=== PATIENT | male | born 1955 | race Caucasian/White ===

== ENCOUNTER 2019-11-23 07:49 | Outpatient (CLI) | payer OTHER, SELFPAY ==
[2019-11-23 08:31] LABS: Cholesterol 165 mg/dL (0-200); HDL Direct 40 mg/dL; Triglycerides 88 mg/dL (<150)
[2019-11-23 08:42] LABS: LDL Cholesterol Direct 105 mg/dL
== END 2019-11-23 07:50 | disposition home or self-care (01) ==
PROVIDERS: PCP Internal Medicine; Visit Provider Internal Medicine Cardiovascular Disease
DX: E78.5 Hyperlipidemia, unspecified (principal)
CPT/HCPCS: 36415; 80061

== ENCOUNTER 2020-04-12 10:16 | Outpatient (CLI) | payer MEDICARE, OTHER, SELFPAY ==
[2020-04-12 11:33] LABS: Prostate Specific Antigen 4.7 ng/mL (< OR = 4.0)
== END 2020-04-12 10:17 | disposition home or self-care (01) ==
LOC: ANHLAB 10:18
PROVIDERS: PCP Internal Medicine; Visit Provider Urology
DX: R97.20 Elevated prostate specific antigen [PSA] (principal)
CPT/HCPCS: 36415; 84153

== ENCOUNTER 2020-05-03 09:39 | Outpatient (CLI) | payer MEDICARE, OTHER, SELFPAY ==
[2020-05-03 10:24] LABS: Basophils Absolute Auto 0.1 K/mm3 (0.0-0.1); Basophils Percent Auto 0.8 % (0.2-1.2); Eosinophils Absolute Auto 0.2 K/mm3 (0-0.3); Hematocrit 41.6 % (42.0-52.0); Hemoglobin 13.7 g/dL (14.0-18.0); Immature Granulocyte Absolute 0.01 K/mm3 (0.00-0.031); Immature Granulocyte Percent A 0.2 % (0-0.5); Lymphocytes Absolute Auto 1.43 K/mm3 (0.9-3.2); Lymphocytes Percent Auto 22.4 % (18.3-44.2); Mean Corpuscular HGB Conc 32.9 g/dl (32-36); Mean Corpuscular Hemoglobin 30.2 pg (26-34); Mean Corpuscular Volume 91.8 fl (80-100); Mean Platelet Volume 9.7 fl (7.4-10.4); Monocytes Absolute Auto 0.6 K/mm3 (0.1-0.6); Monocytes Percent Auto 9.7 % (2.6-8.5); Neutrophils Absolute Auto 4.1 K/mm3 (1.3-6.7); Neutrophils Percent Auto 63.9 % (45.5-73.1); Platelet Count Result 285 k/mm3 (150-375); Red Blood Count 4.53 M/mm3 (4.6-6.20); Red Cell Distribution Width 13.1 % (11.5-14.5); White Blood Count 6.4 K/mm3 (4.5-10.0)
[2020-05-03 10:38] LABS: Alanine Aminotransferase 37 U/L (4-50); Albumin Level 3.9 g/dL (3.5-5.1); Alkaline Phosphatase 60 U/L (38-126); Anion Gap 6 mmol/L (8-16); Aspartate Amino Transferase 34 U/L (17-59); Bilirubin,Total 0.3 mg/dL (0.2-1.3); Blood Urea Nitrogen 15 mg/dL (9-20); Calcium 8.2 mg/dL (8.4-10.2); Carbon Dioxide 29 mmol/L (22-30); Chloride 104 mmol/L (98-107); Cholesterol 168 mg/dL (0-200); Estimated Glomerular Filt Rate 55; Glucose 90 mg/dL (75-110); HDL Direct 39 mg/dL; Sodium 139 mmol/L (137-145); Triglycerides 128 mg/dL (<150)
[2020-05-03 10:49] LABS: LDL Cholesterol Direct 103 mg/dL
== END 2020-05-03 09:40 | disposition home or self-care (01) ==
LOC: ANHLAB 09:40
PROVIDERS: PCP Internal Medicine; Visit Provider Internal Medicine
DX: G25.0 Essential tremor (principal); E78.5 Hyperlipidemia, unspecified
CPT/HCPCS: 36415; 80053; 80061; 85025

== ENCOUNTER 2020-05-15 07:39 | Outpatient (CLI) | payer MEDICARE, OTHER, SELFPAY ==
--- NOTE | ~2020-05-15 | US_ITS ---
EXAMINATION: US aorta [facility] scrn DATE: 05/15/2020 08:23 INDICATION: Personal history of nicotine dependence, abdominal aortic aneurysm screening TECHNIQUE: Grayscale, color Doppler, and pulsed Doppler images of the aorta and common iliac arteries were obtained. COMPARISON: None. FINDINGS: Maximum vascular dimensions are as follows: Proximal aorta: 2.0 cm Mid aorta: 1.8 cm Distal aorta: 1.9 cm Right common iliac artery: 1.1 cm Left common iliac artery: One three cm There is no evidence of abdominal aortic aneurysm. IMPRESSION: 1. No sonographic evidence of abdominal aortic aneurysm. Reviewed, dictated and finalized at location A.
== END 2020-05-15 07:40 | disposition home or self-care (01) ==
LOC: ANHIMG 07:48
PROVIDERS: PCP Internal Medicine; Visit Provider Internal Medicine
DX: Z87.891 Personal history of nicotine dependence (principal)
CPT/HCPCS: 76706

== ENCOUNTER 2020-10-19 10:19 | Outpatient (CLI) | payer MEDICARE, OTHER, SELFPAY ==
--- NOTE | ~2020-10-19 | XR_ITS ---
XR abdomen/kub 1V DATE: 10/19/2020 10:36 INDICATION: Calcium kidney stone TECHNIQUE: AP projection, 2 views COMPARISON: 05/18/[address] abdomen pelvis FINDINGS: There is an approximately 8 mm calcified calculus overlying the left renal pelvis. This lik abad corresponds to a similar size and shape calculus at the upper pole the left kidney on 05/18/2019 CT abdomen pelvis examination. No other urinary tract calcifications are noted on the prior CT abdomen pelvis examination or records KUB. The psoas shadows are intact. No visceromegaly is evident. The bowel gas pattern is unremarkable, without evidence of obstruction. IMPRESSION: 8 mm calcified calculus at left ureteropelvic junction Reviewed, dictated and finalized at Location A. Reviewed, dictated and finalized at location A. ND WATCH SERGEANT
== END 2020-10-19 10:20 | disposition home or self-care (01) ==
PROVIDERS: PCP Internal Medicine; Visit Provider Urology
DX: N20.0 Calculus of kidney (principal)
CPT/HCPCS: 74018

== ENCOUNTER 2020-11-08 07:33 | Outpatient (CLI) | payer MEDICARE, OTHER, SELFPAY ==
[2020-11-08 08:14] LABS: Basophils Absolute Auto 0.1 K/mm3 (0.0-0.1); Basophils Percent Auto 0.8 % (0.2-1.2); Eosinophils Absolute Auto 0.2 K/mm3 (0-0.3); Eosinophils Percent Auto 2.6 % (0-4.4); Hematocrit 42.8 % (42.0-52.0); Hemoglobin 14.1 g/dL (14.0-18.0); Immature Granulocyte Absolute 0.03 K/mm3 (0.00-0.031); Immature Granulocyte Percent A 0.4 % (0-0.5); Lymphocytes Absolute Auto 1.62 K/mm3 (0.9-3.2); Lymphocytes Percent Auto 21.2 % (18.3-44.2); Mean Corpuscular HGB Conc 32.9 g/dl (32-36); Mean Corpuscular Hemoglobin 29.8 pg (26-34); Mean Corpuscular Volume 90.5 fl (80-100); Mean Platelet Volume 9.1 fl (7.4-10.4); Monocytes Absolute Auto 0.7 K/mm3 (0.1-0.6); Monocytes Percent Auto 8.6 % (2.6-8.5); Neutrophils Absolute Auto 5.1 K/mm3 (1.3-6.7); Neutrophils Percent Auto 66.4 % (45.5-73.1); Platelet Count Result 271 k/mm3 (150-375); Red Blood Count 4.73 M/mm3 (4.6-6.20); Red Cell Distribution Width 12.8 % (11.5-14.5); White Blood Count 7.6 K/mm3 (4.5-10.0)
[2020-11-08 08:28] LABS: Alanine Aminotransferase 43 U/L (4-50); Albumin Level 3.8 g/dL (3.5-5.1); Alkaline Phosphatase 56 U/L (38-126); Anion Gap 4 mmol/L (8-16); Aspartate Amino Transferase 38 U/L (17-59); Bilirubin,Total 0.4 mg/dL (0.2-1.3); Blood Urea Nitrogen 13 mg/dL (9-20); Calcium 8.7 mg/dL (8.4-10.2); Carbon Dioxide 31 mmol/L (22-30); Chloride 104 mmol/L (98-107); Estimated Glomerular Filt Rate 41; Glucose 112 mg/dL (75-110); Potassium 4.5 mmol/L (3.4-5.0); Sodium 139 mmol/L (137-145)
[2020-11-08 09:02] LABS: Hemoglobin A1C 5.5 % (<5.7)
[2020-11-08 09:11] LABS: Microalbumin Urine Random 95.5 mg/L (0-16.7)
[2020-11-08 09:48] LABS: Creatinine Urine 372.5 mg/dL; MALB Creatinine Ratio 25.6 mg/g (0-30)
== END 2020-11-08 07:34 | disposition home or self-care (01) ==
PROVIDERS: PCP Internal Medicine; Visit Provider Internal Medicine
DX: E78.2 Mixed hyperlipidemia (principal); I48.0 Paroxysmal atrial fibrillation; F33.1 Major depressive disorder, recurrent, moderate; E55.9 Vitamin D deficiency, unspecified; E78.5 Hyperlipidemia, unspecified; R73.01 Impaired fasting glucose
CPT/HCPCS: 36415; 80053; 82043; 83036; 85025

== ENCOUNTER → 2020-11-14 00:21 | Outpatient (CLI) | payer MEDICARE, OTHER, SELFPAY ==
[2020-11-14 19:08] LABS: SARS-CoV-2 RNA PCR Negative
== END ==
PROVIDERS: PCP Internal Medicine; Visit Provider Urology
DX: Z01.812 Encounter for preprocedural laboratory examination (principal); Z20.822 Contact with and (suspected) exposure to COVID-19
CPT/HCPCS: C9803; U0003; U0005

== ENCOUNTER 2020-11-14 08:03 | Outpatient (CLI) | payer MEDICARE, OTHER, SELFPAY ==
[2020-11-14 08:26] LABS: INR 1.3; Prothrombin Time 16.7 Seconds (11.1-14.7)
[2020-11-14 08:27] LABS: Partial Thromboplastin Time 34.8 SECONDS (22.3-36.8)
== END 2020-11-14 08:04 | disposition home or self-care (01) ==
PROVIDERS: PCP Internal Medicine; Visit Provider Urology
DX: Z01.812 Encounter for preprocedural laboratory examination (principal); N20.0 Calculus of kidney; Z51.81 Encounter for therapeutic drug level monitoring; Z79.899 Other long term (current) drug therapy
CPT/HCPCS: 36415; 85610; 85730; 87086; C9803; U0003; U0005

== ENCOUNTER 2020-11-17 00:43 | Day surgery (SDC) | payer MEDICARE, OTHER, SELFPAY ==
[2020-11-06 11:18] VITALS: BMI 29.4
--- NOTE | 2020-11-16 13:11 | WPDANESEPPF ---
Anes - Initial Pre Proc Eval Procedure: Operation Date: 11/17/20 07:30 Proposed Procedures p Left Renal Extracorporeal Shock Wave Lithotripsy - Stevenson Villagran MD Date/Time: 11/16/20 13:11 Surgeon: Stevenson Villagran MD Pre Op Diagnosis: left kidney stone Patient Data Age: 65 Gender: M Height: 5 ft 10 in Weight: 92.99 kg Allergies Allergy/AdvReac Type Severity Reaction Status Date / Time No Known Allergies Allergy Verified 11/08/20 07:03 Home Medications Medication Instructions Recorded Confirmed Type flecainide 100 mg tablet See Rx Instructions .ROUTE 10/30/20 11/08/20 Rx .COMPLEX #60 tablet cholecalciferol (vitamin D3) 50 mcg PO QPM 11/06/20 11/08/20 History gabapentin 200 mg PO BID 11/06/20 11/08/20 History metoprolol succinate 25 mg PO QPM 11/06/20 11/08/20 History pravastatin 20 mg PO HS 11/06/20 11/08/20 History rivaroxaban [Xarelto] 20 mg PO QPM 11/06/20 11/08/20 History tamsulosin 0.4 mg PO QPM 11/06/20 11/08/20 History [facility] Past Medical History Medical History (Updated 11/16/20 @ 13:11 by Kristopher Givens MD) Dyslipidemia Essential tremor Mixed hyperlipidemia Paroxysmal A-fib Pure hypercholesterolemia Family History Family History Mother Cerebrovascular accident Family history of Parkinson's disease, Onset Age: 85 Sibling Family history of malignant neoplasm Family history of diabetes mellitus in first degree relative Diabetes mellitus Father Family history of heart disease in male family member before age 55 Acute myocardial infarction Family history of cardiovascular disease, Onset Age: 59 Family history of congestive heart failure, Onset Age: 59 Social History Social History Smoking packs per day: 0.5 Smoking cigarettes per day: 10.0 Years smoked: 10 Smoking pack-years: 5.00 Smoking status: Former smoker Tobacco type: cigarettes Smoking end date: 09/15/81 Alcohol intake: current Drinks per week: 1 Spiritual care concerns: No Anes - Eval Final PreProcedure Day of Procedure 11/16/20 13:11 Informed Consent: The patient's anesthetic plan and its attendant risks and benefits were discussed with the patient/family/POA. Questions were solicited and answers provided to the satisfaction of the patient/family/POA.
[2020-11-17] VITALS (8 sets, daily range): BP systolic 87–132; BP diastolic 53–77; PULSE 57–83; RESP 12–20; TEMP 36.6; O2SAT 94–100
--- NOTE | ~2020-11-17 | XR_ITS ---
EXAMINATION: XR abdomen/kub 1V DATE: 11/17/2020 06:15 INDICATION: Kidney stone. TECHNIQUE: A supine view of the abdomen was obtained. COMPARISON: Abdomen radiographs 10/19/20, CT abdomen and pelvis 05/18/2019 FINDINGS: There are no dilated loops of bowel. There are phleboliths in the pelvis. There is an 11 mm stone in left kidney lower pole. IMPRESSION: 1. 11 mm stone in left kidney lower pole. Reviewed, dictated and finalized at location A. SHARPENER
[2020-11-17] MEDS: LACTATED RINGERS 1,000 ML 30 ML IV CONT (06:55)
[2020-11-17 07:14] LABS: INR 0.9; Prothrombin Time 12.8 Seconds (11.1-14.7)
--- NOTE | 2020-11-17 07:14 | WPDANESEPPF ---
Anes - Initial Pre Proc Eval Procedure: Operation Date: 11/17/20 07:30 Proposed Procedures p Left Renal Extracorporeal Shock Wave Lithotripsy - Stevenson Villagran MD Date/Time: 11/17/20 07:14 Surgeon: Stevenson Villagran MD Pre Op Diagnosis: left kidney stone Patient Data Age: 65 Gender: M Height: 5 ft 10 in Weight: 93.05 kg Last Vital Signs Temp 36.6 C 11/17/20 07:01 Pulse 83 11/17/20 07:01 BP 132/72 11/17/20 07:01 Pulse Ox 100 11/17/20 07:01 Allergies Allergy/AdvReac Type Severity Reaction Status Date / Time No Known Allergies Allergy Verified 11/08/20 07:03 Home Medications Medication Instructions Recorded Confirmed Type flecainide 100 mg tablet See Rx Instructions .ROUTE 10/30/20 11/17/20 Rx .COMPLEX #60 tablet cholecalciferol (vitamin D3) 50 mcg PO QPM 11/06/20 11/17/20 History gabapentin 200 mg PO BID 11/06/20 11/17/20 History metoprolol succinate 25 mg PO QPM 11/06/20 11/17/20 History pravastatin 20 mg PO HS 11/06/20 11/17/20 History rivaroxaban [Xarelto] 20 mg PO QPM 11/06/20 11/17/20 History tamsulosin 0.4 mg PO QPM 11/06/20 11/17/20 History Laboratory Tests 11/17/20 06:37 PT Pending INR Pending Patient hx anesthesia problems: none Family hx anesthesia problems: none PMFSH Past Medical History Medical History Dyslipidemia Essential tremor Gastroesophageal reflux disease Hypertension Menieres disease Mixed hyperlipidemia Paroxysmal A-fib Pure hypercholesterolemia Family History Family History Mother Cerebrovascular accident Family history of Parkinson's disease, Onset Age: 85 Sibling Family history of malignant neoplasm Family history of diabetes mellitus in first degree relative Diabetes mellitus Father Family history of heart disease in male family member before age 55 Acute myocardial infarction Family history of cardiovascular disease, Onset Age: 59 Family history of congestive heart failure, Onset Age: 59 Social History Social History Smoking packs per day: 0.5 Smoking cigarettes per day: 10.0 Years smoked: 10 Smoking pack-years: 5.00 Smoking status: Former smoker Tobacco type: cigarettes Smoking end date: 09/15/81 Alcohol intake: current Drinks per week: 1 Living arrangements: with family Spiritual care concerns: No Anes - Eval Final PreProcedure Day of Procedure 11/17/20 07:14 Patient weight: overweight Heart: regular rate and rhythm Lungs: decreased breath sounds Airway: Mallampati scale class II Neurological: alert and oriented Last oral intake: >/= 8 hours ASA classification: III Emergent: no Anesthetic plan: proceed Anesthesia type and monitoring: general LMA and standard monitoring Informed Consent: The patient's anesthetic plan and its attendant risks and benefits were discussed with the patient/family/POA. Questions were solicited and answers provided to the satisfaction of the patient/family/POA.
--- NOTE | 2020-11-17 07:17 | WPDHPUPDATE1 ---
History and Physical Update Update Date/Time: 11/17/20 07:17 History and Physical has been reviewed, including an updated exam of the patient. There are NO changes in the patient's condition. Risks, benefits, and alternatives have been discussed and questions answered. Patient agrees to proceed with procedure.
[2020-11-17] MEDS: ceFAZolin 2 GM/D5W 50 ML 2 GM/50 ML BAG IVPB (07:27)
--- NOTE | 2020-11-17 08:11 | PM.PROC ---
Procedure Note - Detailed Date of procedure: 11/17/20 Pre-op diagnosis: left kidney stone Post-op diagnosis: same Procedure performed: Lithotripsy of left renal calculus 8-9 mm Description of procedure: Patient is taken the operative suite and correctly identified. Once anesthesia was obtained the stone was localized in both planes. Two thousand five hundred shocks were given the stone. There appeared to be fairly good fragmentation. Patient is taken recovery room is given the standard post litho instructions. He will follow up in 7-10 days with KUB Anesthesia: GLMA Surgeon: Stevenson Villagran MD Drains: No Packing: No Pathology: none sent Complications: No immediate complications Condition: stable Disposition: PACU
== END 2020-11-17 09:48 | disposition home or self-care (01) ==
PROVIDERS: PCP Internal Medicine; Visit Provider Urology
PROC: (CPT 50590; principal; 2020-11-17 07:30)
DX: N20.0 Calculus of kidney (principal); I48.0 Paroxysmal atrial fibrillation; E78.2 Mixed hyperlipidemia; E78.00 Pure hypercholesterolemia, unspecified; G25.0 Essential tremor; Z79.01 Long term (current) use of anticoagulants; Z87.891 Personal history of nicotine dependence
CPT/HCPCS: 50590; 36415; 74018; 85610; J0690; J1100; J2250; J2370; J2405; J2704; J3010; J7120

== ENCOUNTER 2020-11-27 11:18 | Outpatient (CLI) | payer MEDICARE, OTHER, SELFPAY ==
--- NOTE | ~2020-11-27 | XR_ITS ---
EXAMINATION: XR abdomen/kub 1V EXAM DATE: 11/27/2020 11:36 INDICATION: Follow-up lithotripsy 11/17/2020. Kidney stone. TECHNIQUE: Frontal projection(s) of the abdomen for interpretation. Comparison is made to prior exami nation from 11/17/2020. FINDINGS: Small amount of left-sided inferior calyceal stone burden than on previous exam, region renita suring about 5 mm. This finding has been indicated. Calcifications in the pelvis are believed to be p hleboliths. Nonobstructive bowel gas pattern. There are mild bony degenerative changes. IMPRESSION: 1. Decrease in left calyceal stone burden. Reviewed, dictated and finalized at location A.
== END 2020-11-27 11:19 | disposition home or self-care (01) ==
PROVIDERS: PCP Internal Medicine; Visit Provider Urology
DX: N20.0 Calculus of kidney (principal)
CPT/HCPCS: 36415; 74018; 80048

== ENCOUNTER 2020-11-27 11:39 | Outpatient (CLI) | payer MEDICARE, OTHER, SELFPAY ==
[2020-11-27 12:51] LABS: Anion Gap 6 mmol/L (8-16); Blood Urea Nitrogen 13 mg/dL (9-20); Calcium 9.1 mg/dL (8.4-10.2); Carbon Dioxide 30 mmol/L (22-30); Chloride 102 mmol/L (98-107); Estimated Glomerular Filt Rate 44; Glucose 78 mg/dL (75-110); Potassium 4.3 mmol/L (3.4-5.0); Sodium 138 mmol/L (137-145)
== END 2020-11-27 11:40 | disposition home or self-care (01) ==
PROVIDERS: PCP Internal Medicine; Visit Provider Internal Medicine
DX: N17.9 Acute kidney failure, unspecified (principal)
CPT/HCPCS: 36415; 80048

== ENCOUNTER 2020-12-05 15:04 | Outpatient (CLI) | payer MEDICARE, OTHER, SELFPAY ==
[2020-12-05 15:39] LABS: Potassium 3.9 mmol/L (3.4-5.0)
[2020-12-05 15:41] LABS: Anion Gap 6 mmol/L (8-16); Blood Urea Nitrogen 12 mg/dL (9-20); Calcium 8.4 mg/dL (8.4-10.2); Carbon Dioxide 30 mmol/L (22-30); Chloride 103 mmol/L (98-107); Estimated Glomerular Filt Rate 44; Glucose 105 mg/dL (75-110); Sodium 139 mmol/L (137-145)
== END 2020-12-05 15:05 | disposition home or self-care (01) ==
LOC: ANHLAB 15:09
PROVIDERS: PCP Internal Medicine; Visit Provider Internal Medicine
DX: N17.9 Acute kidney failure, unspecified (principal)
CPT/HCPCS: 36415; 80048

== ENCOUNTER 2021-05-11 13:18 | Outpatient (CLI) | payer MEDICARE, OTHER, SELFPAY ==
[2021-05-11 13:59] LABS: Basophils Absolute Auto 0.1 K/mm3 (0.0-0.1); Basophils Percent Auto 0.8 % (0.2-1.2); Eosinophils Absolute Auto 0.2 K/mm3 (0-0.3); Hematocrit 41.1 % (42.0-52.0); Hemoglobin 13.6 g/dL (14.0-18.0); Immature Granulocyte Absolute 0.04 K/mm3 (0.00-0.031); Immature Granulocyte Percent A 0.5 % (0-0.5); Lymphocytes Absolute Auto 1.87 K/mm3 (0.9-3.2); Mean Corpuscular HGB Conc 33.1 g/dl (32-36); Mean Corpuscular Hemoglobin 30.4 pg (26-34); Mean Corpuscular Volume 91.9 fl (80-100); Mean Platelet Volume 9.4 fl (7.4-10.4); Monocytes Absolute Auto 0.5 K/mm3 (0.1-0.6); Monocytes Percent Auto 6.2 % (2.6-8.5); Neutrophils Absolute Auto 5.8 K/mm3 (1.3-6.7); Neutrophils Percent Auto 68.5 % (45.5-73.1); Platelet Count Result 256 k/mm3 (150-375); Red Blood Count 4.47 M/mm3 (4.6-6.20); Red Cell Distribution Width 12.8 % (11.5-14.5); White Blood Count 8.5 K/mm3 (4.5-10.0)
[2021-05-11 14:23] LABS: Alanine Aminotransferase 30 U/L (4-50); Albumin Level 4.2 g/dL (3.5-5.1); Alkaline Phosphatase 65 U/L (38-126); Anion Gap 8 mmol/L (8-16); Aspartate Amino Transferase 32 U/L (17-59); Bilirubin,Total 0.4 mg/dL (0.2-1.3); Blood Urea Nitrogen 15 mg/dL (9-20); Calcium 9.1 mg/dL (8.4-10.2); Carbon Dioxide 31 mmol/L (22-30); Chloride 97 mmol/L (98-107); Cholesterol 162 mg/dL (0-200); Estimated Glomerular Filt Rate 51; Glucose 109 mg/dL (65-110); HDL Direct 42 mg/dL; Potassium 3.8 mmol/L (3.4-5.0); Sodium 136 mmol/L (137-145); Triglycerides 162 mg/dL (<150)
[2021-05-11 14:34] LABS: LDL Cholesterol Direct 87 mg/dL
[2021-05-11 14:42] LABS: Vitamin D 25 Hydroxy 59.2 ng/mL
[2021-05-11 15:40] LABS: Hemoglobin A1C 5.6 % (<5.7)
[2021-05-11 15:58] LABS: Creatinine Urine 18.3 mg/dL
[2021-05-11 17:53] LABS: Microalbumin Urine Random < 6.0 mg/L (0-16.7)
== END 2021-05-11 13:19 | disposition home or self-care (01) ==
PROVIDERS: PCP Internal Medicine; Visit Provider Internal Medicine
DX: E55.9 Vitamin D deficiency, unspecified (principal); R73.01 Impaired fasting glucose; E78.2 Mixed hyperlipidemia; F33.1 Major depressive disorder, recurrent, moderate
CPT/HCPCS: 36415; 80053; 80061; 82043; 82306; 83036; 84443; 85025

== ENCOUNTER 2021-05-16 09:19 | Outpatient (CLI) | payer MEDICARE, OTHER, SELFPAY ==
--- NOTE | ~2021-05-16 | XR_ITS ---
EXAMINATION: XR knee RT 3V EXAM DATE: 05/16/2021 09:41 INDICATION: M19.90 - Unspecified osteoarthritis, unspecified site. TECHNIQUE: Three projections of the right knee. Comparison is made to prior examination from 07/30/20 17. FINDINGS: No evidence osteochondral defect or joint body in the right knee joint. Mild tricompartm ental osteoarthritis has developed compared to prior study. No sizable joint effusion. There are no a cute fractures or dislocations identified. There is no subcutaneous gas. The soft tissue is unremar kable. There are no radiopaque foreign bodies. IMPRESSION: Mild right knee osteoarthritis. Reviewed, dictated and finalized at location B.
--- NOTE | ~2021-05-16 | XR_ITS ---
EXAMINATION: XR knee LT 3V EXAM DATE: 05/16/2021 09:41 INDICATION: M19.90 - Unspecified osteoarthritis, unspecified site . TECHNIQUE: Three projections of the left knee. Correlation is made to contralateral knee same date. FINDINGS: No evidence osteochondral defect or joint body in the left knee joint. Mild tricompartme ntal primary osteoarthritis. No sizable joint effusion. There are no acute fractures or dislocations identified. There is no subcutaneous gas. The soft tissue is unremarkable. There are no radiopaqu e foreign bodies. IMPRESSION: Mild left knee osteoarthritis. Reviewed, dictated and finalized at location B.
== END 2021-05-16 09:20 | disposition home or self-care (01) ==
PROVIDERS: PCP Internal Medicine; Visit Provider Internal Medicine
DX: M17.0 Bilateral primary osteoarthritis of knee (principal)
CPT/HCPCS: 73562

== ENCOUNTER 2021-05-23 16:36 | Outpatient (CLI) | payer MEDICARE, OTHER, SELFPAY ==
--- NOTE | ~2021-05-23 | XR_ITS ---
XR abdomen/kub 1V 05/23/2021 16:57 INDICATION: Flank pain TECHNIQUE: KUB COMPARISON: Comparison to multiple prior studies sequentially, with oldest reviewed study dated 11/2018. FINDINGS: Bowel gas pattern is normal. Moderate colonic fecal loading. There is no evidence of free a ir, mass, organomegaly, ascites or obstruction. No abnormal calculi are seen. The bones appear inta ct. IMPRESSION: 1: No acute abdominal abnormality identified. Reviewed, dictated and finalized at location A.
--- NOTE | ~2021-05-23 | MR_ITS ---
EXAMINATION: MR brain/brain stem wo/w con DATE: 05/23/2021 18:48 CDT INDICATION: Tremors. Dizziness. TECHNIQUE: Magnetic resonance imaging (MRI) of the brain and brainstem was performed without and with 18 cc MultiHance intravenous contrast. Sequences included sagittal and axial T1-weighted SE, axial d iffusion-weighted FS SE, axial T2*-weighted GRE, axial T2-weighted FLAIR Propeller, and axial T2-weig hted Propeller. Apparent diffusion coefficient (ADC) maps were created. COMPARISON: MRI dated 04/11/2010 FINDINGS: The brain volume and ventricular system are within normal limits. The brain parenchymal si gnal intensity pattern and hanson/white matter is normal and there is no evidence of hemorrhage, space occupying masses or infarctions. There are scattered mild periventricular and subcortical white matte r changes, most likely related to small vessel ischemic disease (microangiopathy). The flow signal voids of the major arterial structures about the cur[place]ung of [place] and within the tremayne r dural venous sinuses appear grossly unremarkable and patent. The seventh and eighth cranial nerve complexes are normal. The mid sagittal image demonstrates a normal craniovertebral junction and riley us callosum. There is a chronic mucous retention cyst of the right maxillary sinus. No abnormal contrast enhancement was appreciated. IMPRESSION: 1: No acute intracranial abnormality. Normal brain for age. Reviewed, dictated and finalized at location A.
== END 2021-05-23 16:37 | disposition home or self-care (01) ==
LOC: ANHIMG 16:40
PROVIDERS: PCP Internal Medicine; Visit Provider Internal Medicine
DX: G25.2 Other specified forms of tremor (principal); R42 Dizziness and giddiness; N20.0 Calculus of kidney
CPT/HCPCS: 70553; 74018; A9577

== ENCOUNTER → 2021-09-10 08:24 | Outpatient (CLI) | payer MEDICARE, OTHER, SELFPAY ==
--- NOTE | ~2021-09-10 | MR_ITS ---
EXAMINATION: MR knee LT wo con DATE: 09/10/2021 09:14 INDICATION: Bilateral primary osteoarthritis of the knees presenting with 6 months of medial left kne e pain TECHNIQUE: Magnetic resonance imaging (MRI) of the left knee was performed without intravenous contra st. Sequences included coronal PD-weighted FSE, coronal PD-weighted FS FSE, sagittal T2-weighted FSE , sagittal PD-weighted FS FSE and axial PD weighted fat saturated FSE. COMPARISON: None. FINDINGS: Medial compartment: Complex tear of the posterior horn and posterior body of the medial meniscus. This includes a longitu dinal horizontal tear plane extending to the cephalad articular surface and the peripheral third of t he posterior body and posterior horn along with an additional vertical component tear plane involving both the superior and inferior articular surfaces at the junction of the inner and middle thirds of the posterior horn. Partial-thickness chondral ulceration which appears to involve less than 50% the thickness at the anterior weightbearing medial femoral condyle and with deeper cartilage loss/fissuri ng at the central weightbearing medial femoral condyle where there is a single tiny focus of mild und erlying increased signal. Cartilage along the medial tibial plateau is relatively preserved. Lateral compartment: Lateral meniscus is normal. Small region of deep chondral ulceration with minimal underlying cortical irregularity at the central weightbearing lateral femoral condyle. Cartilage along the lateral tibia l plateau is relatively preserved. Patellofemoral compartment: Small region of partial-thickness chondral ulceration with deep fissuring and small underlying focus of subarticular signal change at the medial patellar facet. Partial-thickness chondral ulceration at the medial aspect of the lateral trochlea, the trochlear groove and central to lateral aspect of the medial trochlea with scattered mild underlying cortical irregularity and a few foci of mild subarticu lar increased signal. Ligaments and tendons: Anterior and posterior cruciate ligaments are normal. The medial collateral ligament and fibular liberty ateral ligament complex are normal. Tiny enthesophytes at the patellar insertion of the otherwise nor mal distal quadriceps tendon. Mild distal patellar tendinopathy with thickening of the tendon and mil d marrow edema associated with a small ossicle at its anterior tibial tuberosity insertion. The ossic le conforms to the contours of a small defect at the intervertebral tuberosity which suggests this co uld represent sequela of chronic avulsion fracture or more likely childhood [place]-Schlatter's diseas e. The visualized medial and lateral hamstring tendons as well as the iliotibial band are normal. Fluid: Physiologic amount of fluid in the joint space. No loose osteochondral bodies identified. Osseous/other: Bone alignment is normal. No acute fracture. Aside from the previous noted small foci of increased ma rrow signal, likely degenerative in etiology the marrow signal is otherwise normal. No pathologic mar row replacing process. IMPRESSION: 1. Complex tear of the posterior body and posterior horn of the medial meniscus. 2. Mild osteoarthritis with regions of moderate and high-grade chondromalacia in all 3 compartments. Reviewed, dictated and finalized at location H. NO CAGE MANAGER IMPRESSION: 1. Complex tear of the posterior body and posterior horn of the medial meniscus . 2. Mild osteoarthritis with regions of moderate and high-grade chondromalacia i n all 3 compartments.
== END ==
PROVIDERS: PCP Internal Medicine; Visit Provider Orthopaedic Surgery
DX: M17.0 Bilateral primary osteoarthritis of knee (principal); S83.232A Complex tear of medial meniscus, current injury, left knee, initial encounter; X58.XXXA Exposure to other specified factors, initial encounter
CPT/HCPCS: 73721

== ENCOUNTER 2022-02-13 09:54 | Outpatient (CLI) | payer MEDICARE, OTHER, SELFPAY ==
--- NOTE | ~2022-02-13 | XR_ITS ---
EXAMINATION: XR abdomen/kub 1V INDICATION: Calcium kidney stone TECHNIQUE: Supine views of the abdomen were obtained on 2 radiographs. COMPARISON: 05/23/2021 FINDINGS: No urinary tract calculi are identified. There are phleboliths of the pelvis. The bowel gas pattern is unremarkable. There is mild osteoarthritis of the hips. IMPRESSION: 1. No urolithiasis identified. Reviewed, dictated and finalized at location F.
== END 2022-02-13 09:55 | disposition home or self-care (01) ==
PROVIDERS: PCP Internal Medicine; Visit Provider Urology
DX: N20.0 Calculus of kidney (principal); M16.0 Bilateral primary osteoarthritis of hip
CPT/HCPCS: 74018

== ENCOUNTER 2022-02-27 12:15 | Outpatient (CLI) | payer MEDICARE, OTHER, SELFPAY ==
[2022-02-27 12:32] LABS: Hematocrit 42.1 % (42.0-52.0); Mean Corpuscular HGB Conc 33.3 g/dl (32-36); Mean Corpuscular Hemoglobin 30.4 pg (26-34); Mean Corpuscular Volume 91.5 fl (80-100); Mean Platelet Volume 9.4 fl (7.4-10.4); Platelet Count Result 269 k/mm3 (150-375); Red Cell Distribution Width 12.9 % (11.5-14.5); White Blood Count 7.3 K/mm3 (4.5-10.0)
[2022-02-27 12:44] LABS: Anion Gap 3 mmol/L (8-16); Blood Urea Nitrogen 14 mg/dL (9-20); Calcium 8.8 mg/dL (8.4-10.2); Carbon Dioxide 31 mmol/L (22-30); Chloride 104 mmol/L (98-107); Estimated Glomerular Filt Rate 47; Glucose 85 mg/dL (65-110); Potassium 4.5 mmol/L (3.4-5.0); Sodium 138 mmol/L (137-145)
[2022-02-27 13:16] LABS: Hemoglobin A1C 5.7 % (<5.7)
[2022-02-27 13:39] LABS: Creatinine Urine 377.1 mg/dL; MALB Creatinine Ratio 3.4 mg/g (0-30)
== END 2022-02-27 12:16 | disposition home or self-care (01) ==
PROVIDERS: PCP Internal Medicine; Visit Provider Internal Medicine
DX: N18.9 Chronic kidney disease, unspecified (principal); E78.5 Hyperlipidemia, unspecified; N40.0 Benign prostatic hyperplasia without lower urinary tract symptoms; R73.01 Impaired fasting glucose
CPT/HCPCS: 36415; 80048; 82043; 83036; 85027

== ENCOUNTER 2022-09-03 14:56 | Outpatient (CLI) | payer MEDICARE, OTHER, SELFPAY ==
[2022-09-03 15:26] LABS: Alanine Aminotransferase 41 U/L (6-50); Albumin Level 4.3 g/dL (3.5-5.1); Alkaline Phosphatase 56 U/L (38-126); Anion Gap 7 mmol/L (8-16); Aspartate Amino Transferase 37 U/L (17-59); Bilirubin,Total 0.6 mg/dL (0.2-1.3); Blood Urea Nitrogen 20 mg/dL (9-20); Calcium 9.1 mg/dL (8.4-10.2); Carbon Dioxide 27 mmol/L (22-30); Chloride 102 mmol/L (98-107); Cholesterol 172 mg/dL (0-200); Estimated Glomerular Filt Rate 40; Glucose 98 mg/dL (65-110); HDL Direct 44 mg/dL; Potassium 4.4 mmol/L (3.4-5.0); Sodium 136 mmol/L (137-145); Triglycerides 111 mg/dL (<150)
[2022-09-03 15:50] LABS: LDL Cholesterol Direct 96 mg/dL
[2022-09-03 21:26] LABS: Hemoglobin A1C 6.1 % (<5.7)
== END 2022-09-03 14:57 | disposition home or self-care (01) ==
PROVIDERS: PCP Internal Medicine; Visit Provider Internal Medicine
DX: R73.01 Impaired fasting glucose (principal); E78.5 Hyperlipidemia, unspecified
CPT/HCPCS: 36415; 80053; 80061; 83036

== ENCOUNTER 2023-03-13 12:47 | Outpatient (CLI) | payer MEDICARE, SELFPAY ==
[2023-03-13 13:47] LABS: Basophils Absolute Auto 0.1 K/mm3 (0.0-0.1); Basophils Percent Auto 0.8 % (0.2-1.2); Eosinophils Absolute Auto 0.3 K/mm3 (0-0.3); Eosinophils Percent Auto 4.2 % (0-4.4); Hematocrit 41.9 % (42.0-52.0); Hemoglobin 13.7 g/dL (14.0-18.0); Immature Granulocyte Absolute 0.02 K/mm3 (0.00-0.031); Immature Granulocyte Percent A 0.3 % (0-0.5); Lymphocytes Absolute Auto 1.74 K/mm3 (0.9-3.2); Lymphocytes Percent Auto 23.6 % (18.3-44.2); Mean Corpuscular HGB Conc 32.7 g/dl (32-36); Mean Corpuscular Hemoglobin 30.4 pg (26-34); Mean Corpuscular Volume 92.9 fl (80-100); Mean Platelet Volume 9.6 fl (7.4-10.4); Monocytes Absolute Auto 0.7 K/mm3 (0.1-0.6); Monocytes Percent Auto 9.9 % (2.6-8.5); Neutrophils Absolute Auto 4.5 K/mm3 (1.3-6.7); Neutrophils Percent Auto 61.2 % (45.5-73.1); Platelet Count Result 271 k/mm3 (150-375); Red Blood Count 4.51 M/mm3 (4.6-6.20); White Blood Count 7.4 K/mm3 (4.5-10.0)
[2023-03-13 13:56] LABS: Alanine Aminotransferase 37 U/L (6-50); Albumin Level 3.9 g/dL (3.5-5.1); Alkaline Phosphatase 54 U/L (38-126); Anion Gap 6 mmol/L (8-16); Aspartate Amino Transferase 33 U/L (17-59); Bilirubin,Total 0.6 mg/dL (0.2-1.3); Blood Urea Nitrogen 18 mg/dL (9-20); Calcium 8.8 mg/dL (8.4-10.2); Carbon Dioxide 31 mmol/L (22-30); Chloride 101 mmol/L (98-107); Estimated Glomerular Filt Rate 47; Glucose 88 mg/dL (65-110); Hemoglobin A1C 5.8 % (<5.7); Potassium 4.3 mmol/L (3.4-5.0); Sodium 138 mmol/L (137-145)
== END 2023-03-13 12:48 | disposition home or self-care (01) ==
PROVIDERS: PCP Family Medicine; Visit Provider Nurse Practitioner Family
DX: R73.01 Impaired fasting glucose (principal); Z68.31 Body mass index [BMI] 31.0-31.9, adult; M17.0 Bilateral primary osteoarthritis of knee; E78.5 Hyperlipidemia, unspecified; E66.09 Other obesity due to excess calories; N18.9 Chronic kidney disease, unspecified; F33.2 Major depressive disorder, recurrent severe without psychotic features
CPT/HCPCS: 36415; 80053; 83036; 85025

== ENCOUNTER 2023-09-01 10:04 | Outpatient (CLI) | payer MEDICARE, SELFPAY ==
[2023-09-01 11:06] LABS: Basophils Absolute Auto 0.1 K/mm3 (0.0-0.1); Basophils Percent Auto 0.9 % (0.2-1.2); Eosinophils Absolute Auto 0.3 K/mm3 (0-0.3); Eosinophils Percent Auto 3.9 % (0-4.4); Hematocrit 46.9 % (42.0-52.0); Hemoglobin 15.1 g/dL (14.0-18.0); Immature Granulocyte Absolute 0.08 K/mm3 (0.00-0.031); Lymphocytes Absolute Auto 1.74 K/mm3 (0.9-3.2); Lymphocytes Percent Auto 21.2 % (18.3-44.2); Mean Corpuscular HGB Conc 32.2 g/dl (32-36); Mean Corpuscular Hemoglobin 30.4 pg (26-34); Mean Corpuscular Volume 94.4 fl (80-100); Mean Platelet Volume 9.9 fl (7.4-10.4); Monocytes Absolute Auto 0.6 K/mm3 (0.1-0.6); Monocytes Percent Auto 7.7 % (2.6-8.5); Neutrophils Absolute Auto 5.4 K/mm3 (1.3-6.7); Neutrophils Percent Auto 65.3 % (45.5-73.1); Platelet Count Result 304 k/mm3 (150-375); Red Blood Count 4.97 M/mm3 (4.6-6.20); Red Cell Distribution Width 12.9 % (11.5-14.5); White Blood Count 8.2 K/mm3 (4.5-10.0)
[2023-09-01 11:28] LABS: Alanine Aminotransferase 33 U/L (6-50); Albumin Level 4.4 g/dL (3.5-5.1); Alkaline Phosphatase 65 U/L (38-126); Anion Gap 5 mmol/L (8-16); Aspartate Amino Transferase 28 U/L (17-59); Bilirubin,Total 0.5 mg/dL (0.2-1.3); Blood Urea Nitrogen 13 mg/dL (9-20); Calcium 9.8 mg/dL (8.4-10.2); Carbon Dioxide 33 mmol/L (22-30); Chloride 102 mmol/L (98-107); Cholesterol 169 mg/dL (0-200); Estimated Glomerular Filt Rate 47; Glucose 97 mg/dL (65-110); HDL Direct 41 mg/dL; Potassium 4.5 mmol/L (3.4-5.0); Sodium 140 mmol/L (137-145); Triglycerides 138 mg/dL (<150)
[2023-09-01 11:38] LABS: Iron 83 ug/dL (49-181)
[2023-09-01 11:42] LABS: LDL Cholesterol Direct 94 mg/dL
[2023-09-01 11:47] LABS: Percent Iron Saturation 22 % (20-50)
== END 2023-09-01 10:05 | disposition home or self-care (01) ==
LOC: ANHLAB 10:05
PROVIDERS: PCP Nurse Practitioner Family; Visit Provider Nurse Practitioner Family
DX: E78.5 Hyperlipidemia, unspecified (principal); N18.9 Chronic kidney disease, unspecified; R53.83 Other fatigue; R73.01 Impaired fasting glucose
CPT/HCPCS: 36415; 80053; 80061; 83540; 83550; 84443; 85025

== ENCOUNTER 2024-03-09 08:10 | Outpatient (CLI) | payer MEDICARE, SELFPAY ==
[2024-03-09 08:41] LABS: Alanine Aminotransferase 33 U/L (6-50); Albumin Level 4.2 g/dL (3.5-5.1); Alkaline Phosphatase 59 U/L (38-126); Anion Gap 5 mmol/L (4-12); Aspartate Amino Transferase 29 U/L (17-59); Bilirubin,Total 0.7 mg/dL (0.2-1.3); Blood Urea Nitrogen 17 mg/dL (9-20); Carbon Dioxide 32 mmol/L (22-30); Chloride 103 mmol/L (98-107); Estimated Glomerular Filt Rate 47; Glucose 112 mg/dL (65-110); Sodium 140 mmol/L (137-145)
[2024-03-09 09:36] LABS: Hemoglobin A1C 5.8 % (<5.7)
== END 2024-03-09 08:11 | disposition home or self-care (01) ==
LOC: ANHLAB 08:14
PROVIDERS: PCP Nurse Practitioner Family; Visit Provider Nurse Practitioner Family
DX: R73.01 Impaired fasting glucose (principal); N18.9 Chronic kidney disease, unspecified
CPT/HCPCS: 36415; 80053; 83036

== ENCOUNTER 2024-09-16 10:30 | Outpatient (CLI) | payer MEDICARE, SELFPAY ==
[2024-09-16 10:59] LABS: Basophils Absolute Auto 0.1 K/mm3 (0.0-0.1); Basophils Percent Auto 0.9 % (0.2-1.2); Eosinophils Absolute Auto 0.3 K/mm3 (0-0.3); Eosinophils Percent Auto 2.9 % (0-4.4); Hemoglobin 14.7 g/dL (14.0-18.0); Immature Granulocyte Absolute 0.07 K/mm3 (0.00-0.031); Immature Granulocyte Percent A 0.8 % (0-0.5); Lymphocytes Absolute Auto 1.82 K/mm3 (0.9-3.2); Lymphocytes Percent Auto 21.1 % (18.3-44.2); Mean Corpuscular HGB Conc 32.7 g/dl (32-36); Mean Corpuscular Hemoglobin 30.3 pg (26-34); Mean Corpuscular Volume 92.8 fl (80-100); Mean Platelet Volume 9.3 fl (7.4-10.4); Monocytes Absolute Auto 0.8 K/mm3 (0.1-0.6); Monocytes Percent Auto 9.2 % (2.6-8.5); Neutrophils Absolute Auto 5.6 K/mm3 (1.3-6.7); Neutrophils Percent Auto 65.1 % (45.5-73.1); Platelet Count Result 299 k/mm3 (150-375); Red Blood Count 4.85 M/mm3 (4.6-6.20); Red Cell Distribution Width 12.8 % (11.5-14.5); White Blood Count 8.6 K/mm3 (4.5-10.0)
[2024-09-16 11:08] LABS: Hemoglobin A1C 6.2 % (<5.7)
[2024-09-16 11:17] LABS: Alanine Aminotransferase 36 U/L (6-50); Albumin Level 4.2 g/dL (3.5-5.1); Alkaline Phosphatase 64 U/L (38-126); Anion Gap 4 mmol/L (4-12); Aspartate Amino Transferase 32 U/L (17-59); Bilirubin,Total 0.5 mg/dL (0.2-1.3); Blood Urea Nitrogen 15 mg/dL (9-20); Calcium 9.3 mg/dL (8.4-10.2); Carbon Dioxide 32 mmol/L (22-30); Chloride 104 mmol/L (98-107); Cholesterol 168 mg/dL (0-200); Estimated Glomerular Filt Rate 50; Glucose 99 mg/dL (65-110); HDL Direct 39 mg/dL; Potassium 4.4 mmol/L (3.4-5.0); Sodium 140 mmol/L (137-145); Triglycerides 113 mg/dL (<150)
[2024-09-16 11:28] LABS: LDL Cholesterol Direct 96 mg/dL
== END 2024-09-16 10:31 | disposition home or self-care (01) ==
LOC: ANHLAB 10:32
PROVIDERS: PCP Nurse Practitioner Family; Visit Provider Nurse Practitioner Family
DX: I48.91 Unspecified atrial fibrillation (principal); N18.9 Chronic kidney disease, unspecified; R73.01 Impaired fasting glucose; E78.5 Hyperlipidemia, unspecified; E66.09 Other obesity due to excess calories; Z68.31 Body mass index [BMI] 31.0-31.9, adult
CPT/HCPCS: 36415; 80053; 80061; 83036; 85025

== ENCOUNTER 2024-09-23 13:20 | Outpatient (CLI) | payer MEDICARE, SELFPAY ==
[2024-09-23 14:51] LABS: Prostate Specific Antigen 4.3 ng/mL (< OR = 4.0)
== END 2024-09-23 13:21 | disposition home or self-care (01) ==
LOC: ANHLAB 13:25
PROVIDERS: PCP Nurse Practitioner Family; Visit Provider Urology
DX: R97.20 Elevated prostate specific antigen [PSA] (principal)
CPT/HCPCS: 36415; 84153

== ENCOUNTER 2025-04-05 12:48 | Outpatient (CLI) | payer MEDICARE, SELFPAY ==
--- OUTSIDE RECORDS SUMMARY | 2025-04-05 12:52 | XMS_ITS | Clinical Summary ---
Author Organization [facility] Address [address] [place] [address] Care Team Providers Care Closing Supervisor Name Role Phone Cinthia Crawford MD Primary Care Provider [phone] Allergies No known active allergies Medications metoprolol succinate 25 MG 24 hr tablet Active mirtazapine 15 MG tablet TK 1 T PO QD B BED 1 07/31/2018 Active omeprazole 20 MG capsule TK ONE C PO QD B A MEAL 1 06/19/2018 Active pravastatin (PRAVACHOL) 20 MG tablet Active XARELTO 20 MG Tab tablet TK 1 T PO QD WITH YOVANI MEAL 1 07/31/2018 Active tamsulosin 0.4 MG Cap Take 1 capsule by mouth daily. 10/25/2016 Active flecainide 100 MG tablet Take 100 mg by mouth 2 (two) times daily. 5 01/04/2019 Active metoprolol tartrate 25 MG tablet Take 25 mg by mouth daily. 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 Temperature 37.1 C (98.8 F) 02/01/2019 12:20 PM CDT Respiratory Rate - - Oxygen Saturation - - Inhaled Oxygen Concentration - - Weight 87.5 kg (193 lb) 02/01/2019 12:20 PM CDT Height 177.8 cm (5' 10) 02/01/2019 12:20 PM CDT Body Mass Index 27.69 02/01/2019 12:20 PM CDT Plan of Treatment Health Maintenance Due Date Last Done Comments Colorectal Cancer Screening Colonoscopy (10 Years) 1955 Hepatitis C 1973 DTaP, Tdap and Td Vaccines ( 1 - Tdap) 1974 Pneumococcal Vaccine: 50+ Ye ars (1 of 1 - PCV) 2005 Zoster Vaccines (1 of 2) 2005 COVID-19 Vaccine (1 - 2023-2 5 season) 2024 RSV Immunization or 60+ Years (1 - 1-dose 75+ series) 2030 Meningococcal B Vaccine Aged Out No l onger eligible based on patient's age to complete this topic Meningococcal Vaccine Aged Out No toyin rex eligible based on patient's age to complete this topic RSV Immunizations Under 20 Months Aged Out No longer eligible based on patient's age to complete this topic Insurance [employer] OPEN ACCESS [facility] Care Teams Closing Supervisor Relationship Specialty [place] [id number] [place] [address] PCP - General FAMILY PRACTICE 08/10/18
--- OUTSIDE RECORDS SUMMARY | 2025-04-05 12:52 | XMS_ITS | Clinical Summary ---
Author Organization [facility] [employer] Address [address] [place] [address] Care Team Providers Care Early Childhood Assistant Name Role Phone Unavailable Primary Care Provider Unavailabl e Source Comments [facility] [employer],non-owned Affiliates and Associated Physician Practices is amultiple site organization consisting of ambulatory clinics and hospital sitesin [place], [place], [place] and [place]. This disclosure is being madepursuant to the Care Everywhere program and may not contain all information available regarding this patient. Last updated 18.[facility] [employer] Social History Tobacco Use Types Packs/Day Years Used Date Smoking Tobacco: Never Assessed Sex and Gender Information Value Date Recorded Sex Assigned at Not on file Legal Sex Male 4:30 PM CDT Gender Identity Not on file Sexual Orientation Not on file Plan of Treatment Health Maintenance Due Date Last Done Comments COLOGUARD (AGES 45-75) - COL ON CA SCREENING 1955 COLON MONITORING 1955 COLONOSCOPY - COLON CA SCREENING 1955 CT COLONOGRAPHY - COLON CA SCREENING 1955 Colorectal Cancer Screening 1955 FIT - COLON CA SCREENING 1955 FLEX SIG - COLON CA SCREENING 1955 LIPID TESTING 1955 HEPATITIS C SCREENING 04/10/1973 DTAP/TDAP/TD VACCINES (1 - Tdap) 1974 PNEUMOCOCCAL VACCINE 50+ (1 of 1 - PCV) 2005 ZOSTER VACCINE (1 of 2) 2005 COVID-19 VACCINE ( - 2023-2 5 season) 2024 DEPRESSION SCREENING 09/15/2024 INFLUENZA VACCINE (#1) 2025 Respiratory Syncytial Virus (RSV) Vaccine Pt: or over 60 yrs (1 - 1-dose 75+ series) 2030 HEPATITIS B VACCINE Aged Out No longe r eligible based on patient's age to complete this topic HIB VACCINE Aged Out No longer eligi ble based on patient's age to complete this topic HPV VACCINE Aged Out No longer eligi ble based on patient's age to complete this topic MENINGOCOCCAL (Group B) VACC INE SHARED DECISION-MAKING Aged Out No longer eligibl e based on patient's age to complete this topic MENINGOCOCCAL GROUPS A/C/Y/W VACCINE Aged Out No longer eligible b ased on patient's age to complete this topic Insurance [employer]
--- OUTSIDE RECORDS SUMMARY | 2025-04-05 12:52 | XMS_ITS | Encounter Summary ---
Author Organization [facility] Address [address] [place] [address] Care Team Providers Care Bilingual [employer] Psychologist Name Role Phone Unavailable Primary Care Provider Unavailabl e Encounter Details Date Type Department Care Team (Late st Contact Info) Description 03/24/2019 Lab Requisition [facility] [address] [place] [address] Frannie Castro MD [address] [place], [place] [id number] Gross hematuria Social History Tobacco Use Types Packs/Day Years Used Date Smoking Tobacco: Never Assessed Sex and Gender Information Value Date Recorded Sex Assigned at Not on file Legal Sex Male 4:30 PM CDT Gender Identity Not on file Sexual Orientation Not on file documented as of this encounter Plan of Treatment Not on file documented as of this encounter Procedures Procedure Name Priority Date/Time Associated Diagnosis Comments PATHOLOGY TISSUE Routine 03/22/2019 10:5 1 AM CDT Gross hematuria documented in this encounter Results * PATHOLOGY TISSUE (03/22/2019 10:51 AM CDT) Case Report Surgical Pathology Report Case: [id number] Authorizing Provider: Frannie Castro MD Collected: 03/22/2019 10:51 AM Pathologist: Winston Maravilla MD Received: 03/24/2019 10:51 AM Specimen: Urine 03/24/2019 1:30 PM CDT [facility] Final Diagnosis Urine, voided, Thin Prep, cytology: - No evidence for high-grade urothelial neoplasia - Rare benign urothelial cells in a mixed inflammatory background 03/24/2019 1:30 PM CDT [facility] at 1330 CDT Microscopic Description and Comment Performed. 03/24/2019 1:30 PM CDT [facility] Clinical History Hematuria. 03/24/2019 1:30 PM [facility] Gross Description Prepared slide (1) received from [facility] labeled [id number], Karon Rodriguesry. All material will be returned. 03/24/2019 1:30 PM T [facility] Disclaimer The performance characteristics of all immunohistochemical and indirect immunofluorescence stains (if any) cited in this report were determined by the [facility] of [facility]. Some of these tests were developed by our own laboratory and have not been cleared or approved by the [place] Food and Drug Administration. The FDA does not require this test to go through premarket FDA review. These tests are used for clinical purposes. They should not be regarded as investigational or for research. This laboratory is certified under the Clinical Laboratory Improvement Amendments (CLIA) as qualified to perform high complexity clinical laboratory testing. This case has been personally reviewed and interpreted by the attending (teaching) pathologist. 03/24/2019 1:30 PM T [facility] Embedded Images 03/24/2019 1:30 PM [facility] Pathology/Cytolo gy URINE / Unknown 03/22/2019 10:51 AM CDT 03/24/2019 10:51 AM CDT us Frannie Castro MD LAB - PATHOLOGY/CYTOLOGY ORDERAB LES Final Result [facility] [address] [phone] documented in this encounter Visit Diagnoses Diagnosis Gross hematuria documented in this encounter
[2025-04-05 19:25] LABS: Alanine Aminotransferase 36 U/L (6-50); Albumin Level 4.3 g/dL (3.5-5.1); Alkaline Phosphatase 71 U/L (38-126); Anion Gap 8 mmol/L (4-12); Aspartate Amino Transferase 66 U/L (17-59); Bilirubin,Total 0.7 mg/dL (0.2-1.3); Blood Urea Nitrogen 16 mg/dL (9-20); Calcium 9.8 mg/dL (8.4-10.2); Carbon Dioxide 30 mmol/L (22-30); Chloride 101 mmol/L (98-107); Cholesterol 143 mg/dL (0-200); Estimated Glomerular Filt Rate 49; Glucose 79 mg/dL (65-110); HDL Direct 40 mg/dL; Potassium 5.0 mmol/L (3.4-5.0); Sodium 139 mmol/L (137-145); Total Protein 8.0 g/dL (6.3-8.2); Triglycerides 138 mg/dL (<150)
[2025-04-05 21:08] LABS: Hemoglobin A1C 6.3 % (<5.7)
== END 2025-04-05 12:49 | disposition home or self-care (01) ==
PROVIDERS: PCP Nurse Practitioner Family; Visit Provider Nurse Practitioner Family
DX: E78.5 Hyperlipidemia, unspecified (principal); R73.03 Prediabetes; E66.3 Overweight; Z71.3 Dietary counseling and surveillance; N18.9 Chronic kidney disease, unspecified; N40.0 Benign prostatic hyperplasia without lower urinary tract symptoms; G25.2 Other specified forms of tremor
CPT/HCPCS: 36415; 80053; 80061; 83036